=== PATIENT | female | born 1980 | race Hispanic/Latino ===

== ENCOUNTER 2016-12-24 11:34 | Inpatient (IN) | payer OTHER ==
[2016-12-24 12:26] VITALS: BMI 31.3
--- NOTE | 2016-12-24 13:17 | OBADHP ---
Datetime: 12/24/2016 13:12 IP Chief Complaint Other: PPROM Pelvic Type - PN: Adequate Extremities - PN: Normal Abdomen - PN: Normal Back - PN: Normal Breast - PN: Normal Lungs - PN: Normal Heart - PN: Normal Thyroid - PN: Normal Neurologic - PN: Normal HEENT - PN: Normal General - PN: Normal Weight - Estimated: 3400 Presentation-Admit: Vertex FHR - Baseline A Provider: 140 Amniotic Fluid Color, Provider: Clear Membranes, Provider: Ruptured Contraction Comments Provider: 5 mins Pool Provider: Positive IP Hx Assessment: The History has been Reviewed and is Current Vital Signs Provider: Reviewed; Within Normal Limits IP Chief Complaint: Uterine contractions; Other NICHD Variability Prov Fetus A: Moderate 6-25bpm NICHD Accel Fetus A IP Provider: yes FHR Category Provider Fetus A: Category I NICHD Decel Fetus A IP Provider: None Dilatation, Provider: 2 Effacement, Provider: 70 Station, Provider: -3 Genitourinary Exam: Normal DTRs - PN: Normal IP Adm Impression: No Active Labor; Ruptured Membranes IP Admit Plan: Admit to unit; Initiate labor protocol
[2016-12-24 13:49] LABS: BASO % 0.1 % (0.0-2.0); EOS # 0.1 K/uL (0.0-0.7); EOS % 0.7 % (0.0-4.0); HEMATOCRIT 41.1 % (34.0-47.0); LYMPH # 1.7 K/uL (1.0-4.3); LYMPH % 11.6 % (20.0-40.0); MEAN CELL VOLUME 90.2 fl (81.0-99.0); MEAN CORPUSCULAR HEMOGLOBIN 30.1 pg (27.0-31.0); MEAN CORPUSCULAR HGB CONC 33.3 g/dL (33.0-37.0); MEAN PLATELET VOLUME 9.3 fl (7.2-11.7); MONO # 0.8 K/uL (0.0-0.8); MONO % 5.3 % (0.0-10.0); NEUT # 12.2 K/uL (1.8-7.0); NEUT % 82.3 % (50.0-75.0); NRBC % 0.1 % (0.0-0.0); RED CELL DISTRIBUTION WIDTH 13.1 % (11.5-14.5); WHITE BLOOD COUNT 14.8 K/uL (4.8-10.8)
[2016-12-24 15:23] VITALS: RESP 18
[2016-12-24] MEDS ORDERED: Nalbuphine 20 mg/ml Inj (1 ml) IVP PRN (21:15)
[2016-12-24] MEDS ORDERED: Promethazine 25 MG in Sodium Chloride 0.9% 50 ML IVPB ONE (21:17)
[2016-12-24] MEDS ORDERED: Oxytocin 30 units/LR 500ML 30 U/500 ML BAG IV SCH (21:58)
[2016-12-24] MEDS ORDERED: Lactated Ringer's 500 ML IV SCH (22:00)
[2016-12-24] MEDS ORDERED: Lactated Ringer's 1,000 ML IV SCH (22:00)
[2016-12-24] MEDS ORDERED: Nalbuphine 20 mg/ml Inj (10 ml) IJ SCH (22:00)
[2016-12-24] MEDS ORDERED: Bupivacaine HCl 0.25% PF (10 ml) Inj ONE (22:51)
[2016-12-24] MEDS ORDERED: Fentanyl/Bupivacaine HCl 250 ML EPI ONE (22:51)
[2016-12-25] MEDS ORDERED: ePHEDrine 50 mg/ml Inj ONE (00:06)
[2016-12-25] MEDS ORDERED: Lidocaine 1% Inj (20ml) ONE (01:27)
[2016-12-25] MEDS ORDERED: Oxytocin 30 units/LR 500ML 30 U/500 ML BAG IV SCH (01:46)
[2016-12-25] MEDS ORDERED: Oxycodone/Acetaminophen 5/325 mg Tab PO PRN (05:37)
[2016-12-26 00:41] VITALS: BP 126/69; PULSE 65; TEMP 98.1; O2SAT 97
[2016-12-26 07:51] LABS: BASO # 0.1 K/uL (0.0-0.2); BASO % 0.4 % (0.0-2.0); EOS # 0.3 K/uL (0.0-0.7); EOS % 2.2 % (0.0-4.0); HEMATOCRIT 37.8 % (34.0-47.0); LYMPH # 2.9 K/uL (1.0-4.3); LYMPH % 20.4 % (20.0-40.0); MEAN CELL VOLUME 92.1 fl (81.0-99.0); MEAN CORPUSCULAR HEMOGLOBIN 30.6 pg (27.0-31.0); MEAN CORPUSCULAR HGB CONC 33.2 g/dL (33.0-37.0); MEAN PLATELET VOLUME 8.9 fl (7.2-11.7); MONO # 0.9 K/uL (0.0-0.8); MONO % 6.1 % (0.0-10.0); NEUT # 10.1 K/uL (1.8-7.0); NEUT % 70.9 % (50.0-75.0); RED CELL DISTRIBUTION WIDTH 13.2 % (11.5-14.5); WHITE BLOOD COUNT 14.2 K/uL (4.8-10.8)
--- NOTE | 2016-12-26 13:39 | OBDS ---
[facility] PERSONNEL Nurse Animal Care Worker Certified: Luis Treviño CNM Delivery Doctor: Susan Gauthier Sales Performance Manager: Fadumo Lynn RN Anesthesiologist: James Hilliard MD MATERNAL INFORMATION Delivery Anesthesia: Epidural Medications in Delivery: Pitocin 30mu/500 mL Estimated Blood Loss (ml): 200 Placenta Cultured: No Maternal Complications: Premature Rupture of Membranes; Prolonged Labor > 20 Hrs Provider Comments: Pt was examinied and found to be 10 cm. Because of distress, the vaccum was applied By Dr. Susan Gauthier at +3 and then with one pull the baby was brought down to the +5 Station . The patent then proceeded to have a normal vagnal delvery over an intact perneum from the direct OA position. The baby was placed on the maternal abdomen and produced a spontaneous cry. NC x0. Cord cl amping was delayed. THe cord was then cut and clamped and the placenta was spontaneous and intact. P rocedure was performed by Dr. Susan Gauthier. LABOR SUMMARY EDC: 12/19/2016 00:00 No. Babies in Womb: 1 Attempted: No Labor Anesthesia: Epidural LABOR INFORMATION Reason for Induction: Not Applicable Onset of Labor: 12/25/2016 04:43 Complete Dilatation: 12/25/2016 05:00 Cervical Ripening Agents: Cytotec @ Oxytocin: Augmentation Group B Beta Strep: Negative Antibiotics # of Doses: 0 Antibiotics Time of Last Dose: n/a Steroids Given: None Reason Steroids Not Administered: Not Applicable MEMBRANES Membranes Rupture Method: Spontaneous Rupture of Membranes: 12/23/2016 15:00 Length of Rupture (hrs): 38.50 Amniotic Fluid Color: Clear Amniotic Fluid Amount: Scant Amniotic Fluid Odor: Normal STAGES OF LABOR Stage 1 hrs: 0 Stage 1 min: 17 Stage 2 hrs: 0 Stage 2 min: 30 Stage 3 hrs: 0 Stage 3 min: 4 Total Time in Labor hrs: 0 Total Time in Labor min: 51 VAGINAL DELIVERY Episiotomy: None Laceration Extension: N/A Laceration Type: None Laceration Repair Note: Intact perineum Initial Vag Sponge Count: 5 Final Vag Sponge Count: 5 Initial Vag Sharps Count: 0 Final Vag Sharps Count: 0 Sponge Count Correct: Yes Sharps Count Correct: Yes BABY A INFORMATION Delivery Date/Time: 12/25/2016 05:30 Method of Delivery: Vaginal Born in Route : No : N/A Forceps: N/A Vacuum Extraction: Successful Shoulder Dystocia : No SHOULDER DYSTOCIA BABY A Delivery Date/Time: 12/25/2016 05:30 PRESENTATION/POSITION BABY A Presentation: Cephalic Cephalic Presentation: Vertex Vertex Position: Left Occipital Anterior Breech Presentation: N/A PLACENTA INFORMATION BABY A Placenta Delivery Time : 12/25/2016 05:34 Placenta Method of Delivery: Spontaneous Placenta Status: Delivered SCORES BABY A Heart Rate 1 min: >100 bpm Resp Effort 1 min: Good Cry Reflex Irritability 1 min: Cough or Sneeze or Pulls Away Muscle Tone 1 min: Active Motion Color 1 min: Body [place], Extremities Blue Resuscitation Effort 1 min: N/A SCORE 1 MIN: 9 Heart Rate 5 min: >100 bpm Resp Effort 5 min: Good Cry Reflex Irritability 5 min: Cough or Sneeze or Pulls Away Muscle Tone 5 min: Active Motion Color 5 min: Body [place], Extremities Blue Resuscitation Effort 5 min: N/A SCORE 5 MIN: 9 INFANT INFORMATION BABY A Gestational Age at Delivery: 40.6 Gestational Status: Term Outcome : Liveborn Condition : Stable Sex: Female IDENTIFICATION/MEDS BABY A ID Band Number: [id number] ID Band Location: Left Leg; Left Arm WEIGHT/LENGTH BABY A Infant Birthweight (gms): 3440 Infant Weight (lb): 7 Infant Weight (oz): 9 CORD INFORMATION BABY A No. Cord Vessels: 3 Nuchal Cord : N/A Cord Blood Taken: Yes ASSESSMENT BABY A Complications: None
--- NOTE | 2016-12-26 13:41 | OBPPN ---
Datetime: 12/26/2016 13:38 PP Pain Prov: Within normal limits PP Breasts Prov: Normal PP Heart Prov: Normal PP Lungs Prov: Normal PP Abdomen/Uterus Prov: Normal PP Lochia Prov: Normal PP Vulva/Perineum Prov: Normal PP CVA Tenderness Prov: Normal PP Extremities Prov: Normal PP Impression Prov: Normal progression PP Plan Prov: Continue present management PP Progress Note Prov: S/P . Doing well. . will follow up with MD/DELFINO in 6 wks. IP PP Procedures: None
--- NOTE | 2016-12-26 13:41 | OBDCSUM ---
Datetime: 12/26/2016 13:39 Discharged to, Provider: Home Disch Instr Activity: Normal activity Disch Instr Diet: Regular Discharge Instructions, Provider: Routine instructions given Discharge Diagnosis, Provider: Term Delivered Discharge Time: 12/27/2016 12:00 Disch Referrals: None Contraception discussed, Prov: Yes
== END 2016-12-27 13:35 | disposition home or self-care (01) | DRG 775 ==
LOC: H.EROB2 11:34 → H.L&D 12:47 → H.OB/GYN 12-25 09:10
PROVIDERS: ADMIT Obstetrics & Gynecology; ATTEND Obstetrics & Gynecology
PROC: 10D07Z6 Extraction of Products of Conception, Vacuum, Via Natural or Artificial Opening (ICD-10-PCS; principal; 2016-12-25)
PROC: 4A1HXCZ Monitoring of Products of Conception, Cardiac Rate, External Approach (ICD-10-PCS; 2016-12-25)
DX: O42.02 Full-term premature rupture of membranes, onset of labor within 24 hours of rupture (principal); O63.1 Prolonged second stage (of labor); O77.9 Labor and delivery complicated by fetal stress, unspecified; Z3A.40 40 weeks gestation of pregnancy; Z37.0 Single live birth